=== PATIENT | male | born 1970 | race American Indian/Alaskan Native ===

== ENCOUNTER 2020-07-19 13:54 | Emergency (ER) | payer OTHER ==
[2020-07-19 14:33] VITALS: BP 134/90
[2020-07-19] MEDS ORDERED: TETANUS,DIPH,PERTUSS(ACELL) VACCINE 0.5 ML SYRINGE IM ONE (15:22)
[2020-07-19] MEDS ORDERED: NEOMY 3.5 MG/BACIT 400 UNITS/POLY B 5000 UNITS/GM OINT PACKET TP ONE (15:22)
--- NOTE | 2020-07-19 15:23 | Emergency Department Report ---
ED Animal Bite HPI - General Chief Complaint: Animal Bite Stated Complaint: DOG BITE Time Seen by Provider: 07/19/20 15:22 Source: patient Mode of arrival: Ambulatory Limitations: No Limitations - History of Present Illness Initial Comments: Patient is a 49-year-old male presents emergency room with complaints of a dog bite to the right hand that occurred 2 days ago. He states that this was his dog and the dog did it accidentally. He states his dog is fully vaccinated and up-to-date on vaccines. Patient states he is unsure of his last tetanus immun ization. He states he has had increasing hand pain and swelling. He denies any drainage, fever, numbness, weakness. Past medical history of diabetes. No allergies to medications. - Related Data Home Medications Medication Instructions Recorded Confirmed Last Taken metFORMIN 1,000 mg PO BID 06/30/14 06/30/14 Unknown Previous Rx's Medication Instructions Recorded Last Taken Type Acetaminophen/Codeine 1 tab PO Q4HR PRN #12 tablet 06/30/14 Unknown Rx [Acetaminophen-Codeine #3 TAB] Naproxen [Naprosyn] 500 mg PO BID #20 tablet 06/30/14 Unknown Rx metFORMIN [Glucophage] 1,000 mg PO BID #120 tablet 06/30/14 Unknown Rx methOCARBAMOL [Robaxin] 500 mg PO BID #20 tab 06/30/14 Unknown Rx Acetaminophen 500 mg PO Q8H PRN #12 tablet 02/23/18 Unknown Rx raNITIdine HCl [Zantac 150 MG TAB] 150 mg PO Q12H 30 Days #60 tablet 02/23/18 Unknown Rx Ibuprofen [Motrin 600 MG tab] 600 mg PO Q8H PRN #20 tablet 07/19/20 Unknown Rx Neomycin/Bacitracin/Polymyxinb 1 applicatio TP BID #14 oint...g. 07/19/20 Unknown Rx [Triple Antibiotic Ointment] Sulfamethoxazole/Trimethoprim 1 each PO BID 7 Days #14 tablet 07/19/20 Unknown Rx [Bactrim DS TAB] traMADoL [Ultram 50 MG tab] 50 mg PO Q6HR PRN #7 tablet 07/19/20 Unknown Rx Allergies Allergy/AdvReac Type Severity Reaction Status Date / Time No Known Allergies Allergy Verified 07/19/20 14:25 ED Review of Systems ROS: Stated complaint: DOG BITE Other details as noted in HPI Comment: All other systems reviewed and negative ED Past Medical Hx - Past Medical History Hx Diabetes: Yes - Surgical History Past Surgical History?: No - Social History Smoking Status: Never Smoker Substance Use Type: None - Medications Home Medications: Home Medications Medication Instructions Recorded Confirmed Last Taken Type Acetaminophen/Codeine 1 tab PO Q4HR PRN #12 tablet 06/30/14 Unknown Rx [Acetaminophen-Codeine #3 TAB] Naproxen [Naprosyn] 500 mg PO BID #20 tablet 06/30/14 Unknown Rx metFORMIN 1,000 mg PO BID 06/30/14 06/30/14 Unknown History metFORMIN [Glucophage] 1,000 mg PO BID #120 tablet 06/30/14 Unknown Rx methOCARBAMOL [Robaxin] 500 mg PO BID #20 tab 06/30/14 Unknown Rx Acetaminophen 500 mg PO Q8H PRN #12 tablet 02/23/18 Unknown Rx raNITIdine HCl [Zantac 150 MG TAB] 150 mg PO Q12H 30 Days #60 tablet 02/23/18 Unknown Rx Ibuprofen [Motrin 600 MG tab] 600 mg PO Q8H PRN #20 tablet 07/19/20 Unknown Rx Neomycin/Bacitracin/Polymyxinb 1 applicatio TP BID #14 oint...g. 07/19/20 Unknown Rx [Triple Antibiotic Ointment] Sulfamethoxazole/Trimethoprim 1 each PO BID 7 Days #14 tablet 07/19/20 Unknown Rx [Bactrim DS TAB] traMADoL [Ultram 50 MG tab] 50 mg PO Q6HR PRN #7 tablet 07/19/20 Unknown Rx ED Physical Exam - General Limitations: No Limitations General appearance: alert, in no apparent distress - Head Head exam: Present: atraumatic, normocephalic - Eye Eye exam: Present: normal appearance - ENT ENT exam: Present: mucous membranes moist - Respiratory Respiratory exam: Absent: respiratory distress, accessory muscle use - Extremities Exam Extremities exam: Present: other (abrasions present to the right dorsal and palmar hand, there is edema of the hand, no erythema, mild increased warmth, no fluctuance, no drainage, no necrosis, FROM of the RUE, neurovascularly intact) - Neurological Exam Neurological exam: Present: alert, oriented X3 - Psychiatric Psychiatric exam: Present: normal affect, normal mood - Skin Skin exam: Present: warm, dry ED Course Vital Signs 07/19/20 14:32 Temperature 98.3 F Pulse Rate 91 H Respiratory 18 Rate Blood Pressure 134/90 O2 Sat by Pulse 97 Oximetry - Reevaluation(s) Reevaluation #1: 07/19/20 21:49 Patient is a 49-year-old male presents emergency room with complaints of a dog bite to the right hand that occurred 2 days ago. He states that this was his dog and the dog did it accidentally. He states his dog is fully vaccinated and up-to-date on vaccines. Patient states he is unsure of his last tetanus immunization. He states he has had increasing hand pain and swelling. He denies any drainage, fever, numbness, weakness. Past medical history of diabetes. No allergies to medications. vitals are stable. on exam: abrasions present to the right dorsal and palmar hand, there is edema of the hand, no erythema, mild increased warmth, no fluctuance, no drainage, no necrosis, FROM of the RUE, neurovascularly intact. XR right hand: BONES / JOINT(S): No acute fracture or subluxation. No significant arthritis. SOFT TISSUES: No significant abnormality. ADDITIONAL FINDINGS: None. pt given tdap. Examination appears consistent with some mild cellulitis, no signs of abscess. discussed the importance of follow up. given prescription for bactrim, ibuprofen, tramadol, triple abx ointment. Please use medication as prescribed. Please keep area clean, dry, covered. Wash with antibacterial soap and water and pat dry. No hot tub, no pool, no soaking in water. Showering is fine. Do not drive or operate machinery while taking severe pain medication. Follow-up with your primary care doctor for reexamination. Return to emergency room for new or worsening symptoms. - Consultations Consultation #1: 07/19/20 16:02 Ordering Physician: RADHA DOUGLAS Date of Service: 07/19/20 Procedure(s): XR hand 3+V RT Accession Number(s): [id number] cc: RADHA DOUGLAS Fluoro Time In Minutes: RIGHT HAND 3 VIEWS INDICATION / CLINICAL INFORMATION: dog bite right hand COMPARISON: None available. FINDINGS: BONES / JOINT(S): No acute fracture or subluxation. No significant arthritis. SOFT TISSUES: No significant abnormality. ADDITIONAL FINDINGS: None. Signer Name: Dillon Dang MD Signed: 07/19/2020 3:45 PM Workstation Name: [id number] Transcribed By: ES Dictated By: Dillon Dang MD Electronically Authenticated By: Dillon Dang MD Signed Date/Time: 07/19/201544 DD/ 42 TD/TT: Critical care attestation.: If time is entered above; I have spent that time in minutes in the direct care of this critically ill patient, excluding procedure time. ED Disposition Clinical Impression: Dog bite of right hand Qualifiers: Encounter type: initial encounter Qualified Code(s): S61.451A - Open bite of right hand, initial encounter Cellulitis Qualifiers: Site of cellulitis: extremity Site of cellulitis of extremity: upper extremity Laterality: right Qualified Code(s): L03.113 - Cellulitis of right upper limb Disposition: DC-01 TO HOME OR SELFCARE Is pt being admited?: No Does the pt Need Aspirin: No Condition: Stable Instructions: Animal Bite, Adult, [id number] Additional Instructions: Please use medication as prescribed. Please keep area clean, dry, covered. Wash with antibacterial soap and water and pat dry. No hot tub, no pool, no soaking in water. Showering is fine. Do not drive or operate machinery while taking severe pain medication. Follow-up with your primary care doctor for reexamination. Return to emergency room for new or worsening symptoms. Prescriptions: Sulfamethoxazole/Trimethoprim [Bactrim DS TAB] 1 each PO BID 7 Days #14 tablet Ibuprofen [Motrin 600 MG tab] 600 mg PO Q8H PRN #20 tablet PRN Reason: Pain Neomycin/Bacitracin/Polymyxinb [Triple Antibiotic Ointment] 1 applicatio TP BID #14 oint...g. traMADoL [Ultram 50 MG tab] 50 mg PO Q6HR PRN #7 tablet PRN Reason: Pain , Severe (7-10) Referrals: PRIMARY CARE, [Primary Care Provider] - 2-3 Days Forms: Work/School Release Form(ED) Time of Disposition: 16:02 Print Language: CROATIAN
--- NOTE | 2020-07-19 15:59 | XRay Report ---
RIGHT HAND 3 VIEWS INDICATION / CLINICAL INFORMATION: dog bite right hand COMPARISON: None available. FINDINGS: BONES / JOINT(S): No acute fracture or subluxation. No significant arthritis. SOFT TISSUES: No significant abnormality. ADDITIONAL FINDINGS: None. Signer Name: Dillon Dang MD Signed: 07/19/2020 3:45 PM Workstation Name: [id number]
== END 2020-07-19 16:23 | disposition home or self-care (01) ==
LOC: ED 13:54
DX: S61.451A Open bite of right hand, initial encounter (principal); L03.90 Cellulitis, unspecified; E11.9 Type 2 diabetes mellitus without complications; Z79.899 Other long term (current) drug therapy; W54.0XXA Bitten by dog, initial encounter; Y93.89 Activity, other specified; Y92.89 Other specified places as the place of occurrence of the external cause; Y99.8 Other external cause status
CPT/HCPCS: 73130; 90471; 90715; 99283; A6250